=== PATIENT | female | born 1995 | race Caucasian/White ===

== ENCOUNTER 2016-09-18 14:40 | Emergency (ER) | payer OTHER ==
[~2016-09-18] VITALS: Ht 160 cm; Wt 59.0 kg
[2016-09-18 14:56] VITALS: BP 129/81
--- NOTE | 2016-09-18 15:26 | ED GENERAL ADULT ---
History of Present Illness General Chief Complaint: Lower Extremity Injury Stated Complaint: PT HURT HER BACK AND NEED TO BE CLEAR Source: patient Exam Limitations: no limitations Vital Signs & Intake/Output Vital Signs & Intake/Output Vital Signs Date Time Temp Pulse Resp B/P B/P Pulse O2 O2 Flow FiO2 Mean Ox Delivery Rate 09/18 1456 97.4 82 20 129/81 98 Room Air Allergies Uncoded Allergies: ANESTHESIA (MALIGNANT HYPOTHERMIA 09/18/16) Triage Note: PT TO ED C/O MID TO LOW BACK. 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 HAS NOT TAKEN OTC MEDS. Triage Nurses Notes Reviewed? yes Onset: Abrupt Duration: hour(s): Timing: recent history : No Patient currently breastfeeds: No HPI: 09/18/16 3:40 PM 21-year-old female presents to the emergency department for right upper back pain. 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 The onset of the symptoms was abrupt, the duration was just today, the severity is significant as her symptoms required her to come to the emergency department for care. She does have a history of chronic intermittent back pain and she sees a chiropractor for this in the past. She also has a history of anxiety, depression, and asthma. She takes Klonopin and Wellbutrin. She denies any possibility of , no urinary symptoms, no fever Past History Travel History Traveled to [place] past 21 day No Medical History Any Pertinent Medical History? see below for history Respiratory: asthma Psychiatric: anxiety, depression Blood Disorders: anemia Surgical History Surgical History: non-contributory Psychosocial History What is your primary language Mexican Tobacco Use: Current Daily Use Daily Tobacco Use Amount/Type: => 5 Cigarettes daily ETOH Use: occasional use Illicit Drug Use: denies illicit drug use Family History Hx Contributory? No Review of Systems Review of Systems Constitutional: Denies: fever. EENTM: Reports: no symptoms. Respiratory: Denies: short of breath. Cardiovascular: Denies: chest pain. GI: Denies: abdominal pain. Genitourinary: Reports: no symptoms. Musculoskeletal: Reports: back pain. Skin: Denies: rash. Neurological/Psychological: Denies: headache. Hematologic/Endocrine: Denies: bruising, bleeding. Physical Exam Physical Exam General Appearance: well developed/nourished, alert, awake, anxious, mild distress Head: atraumatic, normal appearance Eyes: Bilateral: normal appearance, PERRL, EOMI. Ears, Nose, Throat: normal ENT inspection, hearing grossly normal Neck: normal inspection, supple, full range of motion Respiratory: normal breath sounds, chest non-tender, no respiratory distress Cardiovascular: regular rate/rhythm Peripheral Pulses: 4+ radial (R), 4+ radial (L) Gastrointestinal: soft, non-tender Back: muscle spasm ((R) parathoracic and paralumar) Extremities: normal range of motion Neurologic/Psych: no motor/sensory deficits, awake, alert, oriented x 3, normal gait Skin: intact, normal color, warm/dry Core Measures ACS in differential dx? No CVA/TIA Diagnosis: No Severe Sepsis Present: No Septic Shock Present: No Progress Differential Diagnoses I considered the following diagnoses in my evaluation of the patient: [Back strain, disc herniation, pneumothorax, pyelonephritis, renal colic,] Plan of Care: Follow-up with occupational medicine. Initial ED EKG: none Departure Departure Disposition: HOME OR SELF CARE Condition: Stable Clinical Impression Primary Impression: Back strain Referrals: PATIENT HAS NO PRIMARY CARE DR (PCP/Family) Departure Forms: [employer] Employee Industrial Accident General Discharge Information Critical Care Note Critical Care Note Critical Care Time: non-applicable
== END 2016-09-18 15:55 ==
LOC: ERH 14:40
DX: S29.012A Strain of muscle and tendon of back wall of thorax, initial encounter (principal); X58.XXXA Exposure to other specified factors, initial encounter